=== PATIENT | male | born 1950 | race Caucasian/White ===

== ENCOUNTER 2018-05-24 06:56 | Outpatient (CLI) | payer MEDICARE ==
[~2018-05-24 06:56] MED LIST: AMLO-150 PO; APIX5TAB PO; ATEN50TA41 PO; CALC1CAP8 PO; CHRO200T2 PO; CINN500C2 PO; DICL100G25 TP; FENO145T32 PO; FLAX100013 PO; GABA300C10 PO; GARL10002 PO; GEMF600T8 PO; GINK120T3 PO; GLUC1CAP13 PO; HYDR-3237 PO; HYDR25TA6 PO; LOSA100T14 PO; METF10002 PO; METO50TA82 PO; MILK500C PO; MV,M1TAB PO; OMEG-128 PO; POTA20TA89 PO; RED600CA2 PO; SAW450CA7 PO; SITA100T PO; TAMS-11 PO; TEST100V2 IM; TEST2.5G TP
== END 2018-05-24 23:59 | disposition home or self-care (01) ==
LOC: CVU 06:56
PROVIDERS: ATTEND Internal Medicine
DX: M79.604 Pain in right leg (principal); M79.605 Pain in left leg; E11.9 Type 2 diabetes mellitus without complications; E78.5 Hyperlipidemia, unspecified; I10 Essential (primary) hypertension
CPT/HCPCS: 93922; 93925

== ENCOUNTER 2018-11-06 16:44 | Outpatient (CLI) | payer MEDICARE | END 2018-11-06 23:59 | disposition home or self-care (01) | LOC: RAD 16:44 | PROVIDERS: ATTEND Emergency Medicine | DX: R31.9 Hematuria, unspecified (principal); K57.30 Diverticulosis of large intestine without perforation or abscess without bleeding; I70.0 Atherosclerosis of aorta | CPT/HCPCS: 74176 ==

== ENCOUNTER 2019-03-06 11:43 | Outpatient (CLI) | payer MEDICARE ==
[2019-03-06] MEDS ORDERED: OMNIPAQUE 350 MG/ML, 100ML BOTTLE ONE (15:08)
== END 2019-03-06 23:59 | disposition home or self-care (01) ==
LOC: CFH 11:43
PROVIDERS: ATTEND Physician Assistant
DX: N28.1 Cyst of kidney, acquired (principal); K76.0 Fatty (change of) liver, not elsewhere classified; K57.30 Diverticulosis of large intestine without perforation or abscess without bleeding; I70.8 Atherosclerosis of other arteries; M47.814 Spondylosis without myelopathy or radiculopathy, thoracic region; J98.11 Atelectasis
CPT/HCPCS: 74177; Q9967

== ENCOUNTER 2020-09-11 13:35 | Outpatient (CLI) | payer MEDICARE ==
[~2020-09-11 13:35] MED LIST changes: +CHRO200T10 PO; -CHRO200T2 PO; +GEMF-31 PO; -GEMF600T8 PO
== END 2020-09-11 23:59 | disposition home or self-care (01) ==
LOC: CFH 13:35
PROVIDERS: ATTEND Internal Medicine Cardiovascular Disease
DX: I08.8 Other rheumatic multiple valve diseases (principal); I48.20 Chronic atrial fibrillation, unspecified; I71.9 Aortic aneurysm of unspecified site, without rupture; I11.9 Hypertensive heart disease without heart failure; E11.9 Type 2 diabetes mellitus without complications; Z95.0 Presence of cardiac pacemaker; Z79.01 Long term (current) use of anticoagulants
CPT/HCPCS: 93306